=== PATIENT | female | born 1990 | race Hispanic/Latino ===

== ENCOUNTER 2022-05-02 21:52 | Inpatient (IN) | payer OTHER ==
[~2022-05-02] VITALS: Ht 157.5 cm; Wt 76.8 kg
[2022-05-02] MEDS ORDERED: ONDANSETRON HCL INJ 2MG/ML 2ML 2 MG/ML VIAL IV PRN (22:45)
[2022-05-02 23:00] VITALS: BP 111/71
[2022-05-02 23:43] VITALS: BP 108/87
[2022-05-03] VITALS (21 sets, daily range): BP systolic 81–119; BP diastolic 50–79
[2022-05-03] MEDS: Vancomycin IV 1 GM in SODIUM CHLORIDE 0.9% 250ML 250 ML IV SCH ×2 (00:11→12:53)
[2022-05-03] MEDS: SODIUM CHLORIDE 0.9% 1000ML 1,000 ML IV SCH ×7 (00:11→19:39)
[2022-05-03] MEDS: Morphine 2mg Syringe 2 MG/ML SYR IV PRN ×2 (02:33→06:54)
[2022-05-03] MEDS: ACETAMINOPHEN 325 MG TAB PO PRN ×2 (08:39→19:35)
[2022-05-03] MEDS ORDERED: SODIUM CHLORIDE 0.9% 500ML 500 ML IV ONE (10:15)
[2022-05-03] MEDS ORDERED: Morphine 4mg INJECTION 4 MG/ML INJ IV PRN (14:30)
[2022-05-03] MEDS ORDERED: Vancomycin IV 1.25 GM in SODIUM CHLORIDE 0.9% 250ML 250 ML IV SCH ×4 (15:00)
[2022-05-03] MEDS ORDERED: HYDROCODONE/APAP 5MG-325MG TAB PO PRN (15:30)
[2022-05-03] MEDS ORDERED: SODIUM CHLORIDE 0.9% 1000ML 1,000 ML IV ONE ×2 (17:30→19:45)
[2022-05-04] MEDS ORDERED: Vancomycin IV 1.25 GM in SODIUM CHLORIDE 0.9% 250ML 250 ML IV SCH (01:00)
== END 2022-05-03 20:45 | disposition short-term general hospital (02) | DRG 872 ==
LOC: ICU 22:28
PROVIDERS: ADMIT Internal Medicine; ATTEND Internal Medicine
DX: A41.9 Sepsis, unspecified organism (principal); K61.1 Rectal abscess; L73.2 Hidradenitis suppurativa; E66.09 Other obesity due to excess calories; Z68.31 Body mass index [BMI] 31.0-31.9, adult; N83.201 Unspecified ovarian cyst, right side; N20.0 Calculus of kidney; Z20.822 Contact with and (suspected) exposure to COVID-19; R65.20 Severe sepsis without septic shock; Z91.040 Latex allergy status; Z91.018 Allergy to other foods
CPT/HCPCS: 36415; 80202; 99252; J2270; J2543; J3370; J7030; J7050